=== PATIENT | male | born 1990 | race African-American/Black ===

== ENCOUNTER 2017-03-15 09:09 | Emergency (ER) | payer MEDICAID ==
[~2017-03-15] VITALS: Ht 182.9 cm; Wt 95.3 kg
[~2017-03-15 09:09] MED LIST: ALBUAER3 IN; AZITTAB11 PO; METH4PAK PO
[2017-03-15 09:36] VITALS: BP 144/94
[2017-03-15] MEDS ORDERED: cefTRIAXone SOD 1,000 MG VL IM ONE (10:30)
[2017-03-15] MEDS ORDERED: KETOROLAC TROMETH 60MG/2ML VIAL IM ONE (10:30)
== END 2017-03-15 11:18 | disposition home or self-care (01) ==
LOC: ER 09:09
DX: N45.1 Epididymitis (principal); N43.3 Hydrocele, unspecified; J45.909 Unspecified asthma, uncomplicated; N39.0 Urinary tract infection, site not specified; F17.210 Nicotine dependence, cigarettes, uncomplicated
CPT/HCPCS: 76870; 96372; 99284; J0696; J1885

== ENCOUNTER 2018-05-07 21:23 | Emergency (ER) | payer MEDICAID ==
[~2018-05-07] VITALS: Ht 182.9 cm; Wt 122.5 kg
[2018-05-07 23:20] VITALS: BP 158/78
[2018-05-08] MEDS ORDERED: cefTRIAXone SOD 1,000 MG VL IM ONE
[2018-05-08] MEDS ORDERED: DEXAMETHASONE SOD PHOS 10MG/1ML VIAL INJ IM ONE
== END 2018-05-08 05:52 | disposition home or self-care (01) ==
LOC: ER 21:23
DX: R09.81 Nasal congestion (principal); J06.9 Acute upper respiratory infection, unspecified; J45.909 Unspecified asthma, uncomplicated; F17.210 Nicotine dependence, cigarettes, uncomplicated; Z79.2 Long term (current) use of antibiotics
CPT/HCPCS: 96372; 99283; J0696; J1100

== ENCOUNTER 2019-06-21 14:33 | Emergency (ER) | payer MEDICAID ==
[~2019-06-21] VITALS: Ht 182.9 cm; Wt 86.2 kg
[2019-06-21 17:19] VITALS: BP 125/73
[2019-06-21] MEDS ORDERED: IBUPROFEN 800 MG TAB PO ONE (17:45)
== END 2019-06-21 18:12 | disposition home or self-care (01) ==
LOC: ER 14:33
DX: J06.9 Acute upper respiratory infection, unspecified (principal); R51 Headache; F17.210 Nicotine dependence, cigarettes, uncomplicated; J45.909 Unspecified asthma, uncomplicated; Z79.2 Long term (current) use of antibiotics

== ENCOUNTER 2020-11-26 02:00 | Emergency (ER) | payer MEDICAID ==
[~2020-11-26] VITALS: Ht 182.9 cm; Wt 90.7 kg
[2020-11-26] MEDS ORDERED: IBUPROFEN 600 MG TAB PO ONE (08:15)
[2020-11-26] MEDS ORDERED: TETANUS-DIPTH-ACEL PERTUSSIS 0.5ML SYR Tdap IM ONE (09:00)
[2020-11-26] MEDS ORDERED: LIDOCAINE 1% HCL (LOCAL ANESTH.) INJ 20ML MDV ID ONE (10:00)
[2020-11-26] MEDS ORDERED: ceFAZolin 1GM/50ML 100 ML IV ONE (14:00)
[2020-11-26] MEDS ORDERED: ceFAZolin IM 1GM/2.5ML STERILE WATER IM ONE (14:15)
[2020-11-26] MEDS ORDERED: ceFAZolin 1GM VL ONE (14:17)
[2020-11-26 14:27] VITALS: BP 100/41
== END 2020-11-26 14:29 | disposition home or self-care (01) ==
LOC: ER 02:05
DX: S50.352A Superficial foreign body of left elbow, initial encounter (principal); F17.210 Nicotine dependence, cigarettes, uncomplicated; Z79.899 Other long term (current) drug therapy; J45.909 Unspecified asthma, uncomplicated; V49.49XA Driver injured in collision with other motor vehicles in traffic accident, initial encounter; Y93.89 Activity, other specified; Y92.89 Other specified places as the place of occurrence of the external cause; Y99.8 Other external cause status
CPT/HCPCS: 70450; 71250; 72125; 73030; 73070; 73080; 73120; 74176; 90471; 90715; 96372; 99285; J0690; J2001; 10120

== ENCOUNTER 2022-11-21 13:33 | Emergency (ER) | payer MEDICAID ==
[~2022-11-21] VITALS: Ht 182.9 cm; Wt 116.8 kg
[2022-11-21 14:48] VITALS: BP 128/82
[2022-11-21] MEDS ORDERED: cefTRIAXone SOD 1,000 MG VL IM ONE (15:30)
[2022-11-21] MEDS ORDERED: AMOX400S53 PO (15:35)
[2022-11-21] MEDS ORDERED: LIDO2SOL26 MT (15:35)
== END 2022-11-21 15:46 | disposition home or self-care (01) ==
LOC: ER 13:33
DX: J03.90 Acute tonsillitis, unspecified (principal); J45.909 Unspecified asthma, uncomplicated; F17.210 Nicotine dependence, cigarettes, uncomplicated; Z88.1 Allergy status to other antibiotic agents
CPT/HCPCS: 96372; 99283; J0696

== ENCOUNTER 2024-05-31 14:40 | Emergency (ER) | payer MEDICAID ==
[~2024-05-31] VITALS: Ht 182.9 cm; Wt 116.6 kg
[~2024-05-31 14:40] MED LIST changes: +AMOX400S53 PO; +LIDO2SOL26 MT
[2024-05-31 15:48] LABS: Rapid Influenza A Negative (Negative); Rapid Influenza B Negative (Negative)
[2024-05-31 15:49] LABS: COVID19 ANTIGEN SOFIA FIA NEGATIVE (NEGATIVE)
[2024-05-31] MEDS ORDERED: AZIT-43 PO (18:30)
[2024-05-31] MEDS ORDERED: PRED20TA2 PO (18:30)
[2024-05-31] MEDS ORDERED: ALBUAER3 IN (18:30)
[2024-05-31] MEDS ORDERED: ACET500T58 PO (18:30)
--- NOTE | 2024-05-31 18:31 | ED.PDOC ---
SOB-HPI HPI Comments 34-YEAR-OLD MALE PRESENTS TO ER WITH COMPLAINTS OF COUGH X2 DAYS. PATIENT REPORTS HE HAS BEEN EXPERIENCING DRY COUGH, SORE THROAT AND ON/OFF BODY ACHES X2 DAYS WITH ASSOCIATED FEVER AND FRONTAL HEADACHE X1 DAY. DENIES USE OF MEDICATIONS FOR CURRENT SYMPTOMS. HE RATES HIS CURRENT PAIN A 10/10. PATIENT PRESENTS TO ER AFEBRILE, AMBULATORY ON ARRIVAL, WITH STEADY GAIT, IN NO DISTRESS AND STATES HE RECENTLY RAN OUT OF HIS ALBUTEROL INHALER THAT HE USES NEEDED FOR ASTHMA AND IS REQUESTING A REFILL OF HIS ALBUTEROL INHALER IN ER TODAY. DENIES SHORTNESS OF BREATH, CHEST PAIN, HEMOPTYSIS, EARACHE, DIZZINESS, NAUSEA/VOMITING, KNOWN EXPOSURE TO SICK CONTACTS OR ANY FURTHER SYMPTOMS/COMPLAINTS Chief Complaint: Flu like Time Seen by MD: 18:10 Primary Care Provider: UNKNOWN Reviewed notes: Nurses Notes, Medications, Allergies Information Source: Patient Mode of Arrival: Ambulatory Past Medical History PAST MEDICAL HISTORY: Asthma Surgical History: Denies all surgeries Family History Family History: Unknown Social History Smoker: Cigarettes, Less Than 1 Pack/Day Alcohol: Denies ETOH Use Drugs: Denies Drug Use Lives In: Home Constitutional: reports: others ( STATED IN HPI) EENTM: reports: others ( STATED IN HPI) Respiratory: reports: others ( STATED IN HPI) Cardiovascular: denies: chest pain, dizzy spells, diaphoresis, Dyspnea on exertion, edema, irregular heart beat, left arm pain, lightheadedness, palpitations, PND, syncope, others Gastrointestinal: denies: abdomen distended, abdominal pain, blood streaked bowels, constipated, diarrhea, dysphagia, difficulty swallowing, hematemesis, melena, nausea, poor appetite, poor fluid intake, rectal bleeding, rectal pain, vomiting, others Genitourinary: denies: burning, dysuria, flank pain, frequency, hematuria, incontinence, penile discharge, penile sore, pain, testicle pain, testicle swe lling, urgency, others Neurological: reports: others ( STATED IN HPI) Musculoskeletal: denies: back pain, gout, joint pain, joint swelling, muscle pain, muscle stiffness, neck pain, others Integumetry: denies: bruises, change in color, change in hair/nails, dryness, laceration, lesions, lumps, rash, wounds, others Allergic/Immunocompromised: denies: Difficulty Healing, Frequent Infections, Hives, Itching, others Hematologic/Lymphatic: denies: anemia, blood clots, easy bleeding, easy bruising, swollen glands, others Endocrine: denies: excessive hunger, excessive sweating, excessive thirst, excessive urination, flushing, intolerance to cold, intolerance to heat, unexplained weight gain, unexplained weight loss, others Psychiatric: denies: anxiety, bipolar disorder, depression, hopeless, panic disorder, schizophrenia, sleepless, suicidal, others Physical Exam General Appearance: No Apparent Distress, Obese HEENT: Normal ENT Inspection, PERRL/EOMI, Pharynx Normal, TMs Normal Neck: Full Range of Motion, Non-Tender, Normal Respiratory: Chest Non-Tender, Lungs Clear, No Accessory Muscle Use, No Respiratory Distress, Normal Breath Sounds Cardiovascular: No Murmur, No Gallop, Regular Rate/Rhythm Breast Exam: Deferred Gastrointestinal: NOT DONE Genitalia: Deferred Pelvic: Deferred Rectal: Deferred Extremities: Normal capillary refill, Normal range of motion Neurologic: Alert, multi line claims adjuster II-XII nml as Tested, No Motor Deficits, Normal Affect, Normal Mood, No Sensory Deficits Cerebellar Function: Normal Reflexes: Normal Skin: Dry, Normal Color, Warm Peripheral Pulses: 2+ Radial (R), 2+ Radial (L), 2+ Brachial (R), 2+ Brachial (L) Lymphatic: No Adenopathy Was a procedure done? Was a procedure done?: No Sedation Sedation?: No Differential Dx Differential Diagnosis: Pneumonia, Respiratory Distress, Allergic Rhinitis, Other (COVID-19, INFLUENZA) X-Ray, Labs, Meds, VS Vital Signs Date Time Temp Pulse Resp B/P (MAP) Pulse Ox O2 Delivery O2 Flow Rate FiO2 05/31/24 15:06 97.2 94 16 146/84 (104) 94 Lab Test 05/31/24 14:57 Range/Units Influenza Type A Antigen Negative Negative Influenza Type B Antigen Negative Negative SARS-CoV-2 Antigen (Rapid) Negative NEGATIVE INFLUENZA A AND B REVIEWED-NEGATIVE WILLIAM REVIEWED-NEGATIVE PATIENT IN NO DISTRESS DURING ER VISIT/PRIOR TO DISCHARGE SMOKING CESSATION DISCUSSED AND ADVISED ADVISED TO DRINK PLENTY OF FLUIDS ADVISED TO FOLLOW UP WITH PCP IN 1-2 DAYS PATIENT VERBALIZED UNDERSTANDING AND AGREEABLE WITH CURRENT PLAN OF CARE ADVISED TO RETURN TO ER IMMEDIATELY IF SYMPTOMS WORSEN Time of 1ST Reevaluation: 18:02 Reevaluation 1ST: N/A Patient Education/Counseling: Diagnosis, Treatment, Prognosis, Need For Follow Up Family Education/Counseling: No Family Present Departure 1 Departure Time of Disposition: 18:22 Impression: Primary Impression: Upper respiratory infection Qualified Codes: J06.9 - Acute upper respiratory infection, unspecified Disposition: 01 HOME / SELF CARE / HOMELESS Condition: Stable e-Prescriptions Albuterol Sulfate (VENTOLIN MDI) 90 Mcg Ih 2 PUFF IN Q6HPRN, #1 INH 0 Refills Prov: STAN MORRELL 05/31/24 Acetaminophen (Acetaminophen) 500 Mg Tab 500 MG PO Q4HPRN, #30 TAB 0 Refills Prov: STAN MORRELL 05/31/24 Prednisone (Prednisone) 20 Mg Tab 20 MG PO BID for 5 Days, #10 TAB 0 Refills Prov: STAN MORRELL 05/31/24 Azithromycin (Azithromycin) 250 Mg Tab 250 MG PO DAILY MDD 500 for 5 Days, #6 TAB 0 Refills 2 TABLETS ORALLY ON DAY ONE, THEN 1 TABLET ORALLY DAILY FOR 4 DAYS Prov: STAN MORRELL 05/31/24 Discharged With: Self Critical Care Note Critical Care Time?: No Stability Stability form required: No Heart Score Heart Score: Heart Score Response (Comments) Value History N/A 0 EKG N/A 0 Age N/A 0 Risk Factors N/A 0 Troponin N/A 0 Total 0 STAN MORRELL May 31, 2024 18:30
[2024-05-31 18:32] VITALS: BP 151/92; PULSE 87; RESP 18; TEMP 98; O2SAT 96
== END 2024-05-31 18:38 | disposition home or self-care (01) ==
LOC: ER 14:46
DX: J06.9 Acute upper respiratory infection, unspecified (principal); F17.210 Nicotine dependence, cigarettes, uncomplicated; J45.909 Unspecified asthma, uncomplicated; Z20.822 Contact with and (suspected) exposure to COVID-19
CPT/HCPCS: 36415; 87426; 87804

== ENCOUNTER 2025-05-23 12:46 | Emergency (ER) | payer MEDICAID ==
[~2025-05-23] VITALS: Ht 182.9 cm; Wt 118.2 kg
[~2025-05-23 12:46] MED LIST changes: +ACET500T58 PO; +AZIT-43 PO; +PRED20TA2 PO
[2025-05-23] MEDS: ALBUTEROL SULF 2.5 MG/0.5ML(0.5%) NEB SOLN NEB ONE (13:34)
[2025-05-23] MEDS: IPRATROPIUM BROM 0.5 MG/2.5ML INH SOL NEB ONE (13:34)
[2025-05-23] MEDS: IPRATROPIUM BROM 0.5 MG/2.5ML INH SOL ONE (13:34)
[2025-05-23] MEDS: ALBUTEROL SULF 2.5 MG/0.5ML(0.5%) NEB SOLN ONE (13:34)
--- NOTE | 2025-05-23 14:00 | DVH ---
CHEST RADIOGRAPH INDICATION: cough x 1 month TECHNIQUE: Single frontal view of the chest was obtained COMPARISON: CT CHEST ABD PELVIS WO CONTRAS on DOS: 11/26/20 FINDINGS: Lines and Tubes: None Lungs: No focal consolidation. Pleura: No effusion. No pneumothorax. Cardiomediastinal contours: Unremarkable Bones: No acute osseous abnormality. IMPRESSION: No acute cardiopulmonary disease.
[2025-05-23] MEDS ORDERED: METH4PAK PO (14:15)
--- NOTE | 2025-05-23 14:15 | ED.PDOC ---
SOB-HPI HPI Comments The patient with a history of asthma presents for evaluation of worsening respiratory symptoms. The patient reports nearly three weeks of waking up in the morning with significant congestion described as similar to asthma, which feels worse now. Additional symptoms include frequent coughing and intermittent shortness of breath that can become severe. The patient denies coughing up blood and notes that current inhaler and nebulizer treatments are not providing relief or improving breathing. The patient is currently using a Butyra inhaler and a nebulized medication at home, though reports these are ineffective. No relevant family or surgical history was discussed. Denies fevers chills night sweats unintentional weight loss Denies persistent chest pain, shortness of breath, leg swelling Denies history of asthma nor any breathing conditions Denies history of pneumonia Denies recent international travel Chief Complaint: Flu like Time Seen by MD: 12:56 Primary Care Provider: UNKNOWN Reviewed notes: Nurses Notes, Medications, Allergies Mode of Arrival: Ambulatory Severity: Moderate Timing: Weeks Duration: Since onset Context: At Rest, Spontaneous Onset PE Risk Factors: None History of: Asthma Prehospital treatment: None Associated Signs and Symptoms: Cough, Nasal Congestion If cough with SOB: Non-Productive Past Medical History PAST MEDICAL HISTORY: Asthma Surgical History: Denies all surgeries Family History Family History: Reviewed,noncontributory to illness, Unknown Social History Smoker: Cigarettes, Less Than 1 Pack/Day Alcohol: Denies ETOH Use Drugs: Denies Drug Use Lives In: Home Constitutional: denies: chills, diaphoresis, fatigue, fever, malaise, sweats, weakness, others EENTM: reports: nose congestion; denies: blurred vision, double vision, ear bleeding, ear discharge, ear drainage, ear pain, ear ringing, eye pain, eye redness, hearing loss, mouth pain, mouth swelling, nasal discharge, nose bleeding, nose pain, photophobia, tearing, throat pain, throat swelling, voice changes, others Respiratory: reports: cough, shortness of breath; denies: hemoptysis, orthopnea, SOB at rest, SOB with excertion, stridor, wheezing, others Cardiovascular: denies: chest pain, dizzy spells, diaphoresis, Dyspnea on ex ertion, edema, irregular heart beat, left arm pain, lightheadedness, palpitations, PND, syncope, others Gastrointestinal: denies: abdomen distended, abdominal pain, blood streaked bowels, constipated, diarrhea, dysphagia, difficulty swallowing, hematemesis, melena, nausea, poor appetite, poor fluid intake, rectal bleeding, rectal pain, vomiting, others Genitourinary: denies: burning, dysuria, flank pain, frequency, hematuria, incontinence, penile discharge, penile sore, pain, testicle pain, testicle swelling, urgency, others Neurological: denies: dizziness, fainting, headache, left sided numbness, left sided weakness, numbness, paresthesia, pre-existing deficit, right sided numbness, right sided weakness, seizure, speech problems, tingling, tremors, weakness, others Musculoskeletal: denies: back pain, gout, joint pain, joint swelling, muscle pain, muscle stiffness, neck pain, others Integumetry: denies: bruises, change in color, change in hair/nails, dryness, laceration, lesions, lumps, rash, wounds, others Allergic/Immunocompromised: denies: Difficulty Healing, Frequent Infections, Hives, Itching, others Hematologic/Lymphatic: denies: anemia, blood clots, easy bleeding, easy bruising, swollen glands, others Endocrine: denies: excessive hunger, excessive sweating, excessive thirst, excessive urination, flushing, intolerance to cold, intolerance to heat, unexplained weight gain, unexplained weight loss, others Psychiatric: denies: anxiety, bipolar disorder, depression, hopeless, panic disorder, schizophrenia, sleepless, suicidal, others All Other Systems: Reviewed and Negative Physical Exam Exam Comments No nasal flaring, no sternal retractions, noticeable expiratory wheezing throughout the anterior and posterior lobes. General Appearance: No Apparent Distress, Normal HEENT: Normal ENT Inspection, Pharynx Normal, TMs Normal Neck: Full Range of Motion, Non-Tender, Normal, Normal Inspection Respiratory: Chest Non-Tender, Lungs Clear, No Accessory Muscle Use, No Respiratory Distress, Normal Breath Sounds Cardiovascular: No Edema, No JVD, No Murmur, No Gallop, Normal Peripheral Pulses, Regular Rate/Rhythm Breast Exam: Deferred Gastrointestinal: No Organomegaly, Non Tender, No Pulsatile Mass, Normal Bowel Sounds, Soft Genitalia: Deferred Pelvic: Deferred Rectal: Deferred Extremities: No calf tenderness, Normal capillary refill, Normal inspection, Normal range of motion, Non-tender, No pedal edema Musculoskeletal : Apperance: Normal Neurologic: Alert, coordinator skill training program II-XII nml as Tested, No Motor Deficits, Normal Affect, Normal Mood, No Sensory Deficits Cerebellar Function: Normal Reflexes: Normal Skin: Dry, Normal Color, Warm Lymphatic: No Adenopathy Was a procedure done? Was a procedure done?: No Differential Dx Differential Diagnosis: Other X-Ray, Labs, Meds, VS Vital Signs Date Time Temp Pulse Resp B/P (MAP) Pulse Ox O2 Delivery O2 Flow Rate FiO2 05/23/25 14:21 68 16 98 Room Air 05/23/25 14:21 98.4 64 16 120/77 (91) 98 98.4 05/23/25 13:34 18 95 Room Air* 0 21 05/23/25 12:52 Room Air* 0 21 05/23/25 12:49 97.8 86 12 124/87 97 97.8 Current Medications Medications (Trade) Dose Ordered Sig/Norman Route Start Time Stop Time Status Last Admin Albuterol (Ventolin Medneb) 5 mg ONCE ONCE NEB 05/23/25 13:30 05/23/25 13:31 DC 05/23/25 13:34 Ipratropium [place] (Atrovent Medneb) 0.5 mg ONCE ONCE NEB 05/23/25 13:30 05/23/25 13:31 DC 05/23/25 13:34 Dexamethasone Sodium Phosphate (Decadron Injection) 16 mg ONCE ONCE IM 05/23/25 13:30 05/23/25 13:31 DC 05/23/25 13:42 X-Ray, Labs, Meds, VS Comment Patient arrives alert and oriented, ABC's intact, afebrile, vital signs stable, saturating well in room air The patient is experiencing worsening asthma symptoms despite home use of inhaler and nebulized medications, with persistent expiratory wheezing on exam. No hemoptysis. Increased risk due to ongoing daily smoking. Initiate DUON ABS and steroids. Reassess response to treatment. On reevaluation symptoms improved with treatment in the ED. Vital signs and exam reassuring. Lungs clear no wheezing. No labored breathing. No signs of respiratory distress. On reevaluation, patient had symptomatic improvement. Patient is stable for discharge at this time. External notes reviewed. Test results and diagnostic imaging interpreted. All diagnostic findings, discharge care, education and instructions provided Follow-up with PCP in 2 to 3 days Patient verbalized understanding and agreed to treatment plan Vital signs stable, afebrile, no acute distress noted Patient ambulatory with strong steady gait Advised to return precautions for any new or worsening symptoms, return to ER immediately for re-evaluation Patient is aware that the purpose of this visit was for an acute medical emergency requiring emergent stabilization. Chronic conditions, including malignancies have not been ruled out. Patient is instructed to follow up with PCP as directed and discharge instructions for continued care and workup. If unable to arrange follow-up, patient is to return to the emergency department for reassessment. Patient (parent or legal guardian if applicable) was given verbal and written discharge instructions and acknowledges understanding. Additional MDM Review of External, Non-ED records: External records reviewed. Discussion with independent historian (EMS, family) history obtained from the patient/parents (if applicable) at bedside Chronic conditions affecting care: None Social determinants of health affecting care: None Consideration of admission (observation or admission): I considered escalation of care to admission for this patient, however given the reassuring workup, the patient is safe for outpatient management. Discussion with the Radiology: No Tests considered but not performed: Prescription medication considered but not given: 12 lead EKG interpretation: Time of 1ST Reevaluation: 13:25 Reevaluation 1ST: Unchanged Patient Education/Counseling: Diagnosis, Treatment, Prognosis Family Education/Counseling: No Family Present SEPSIS Sepsis Screen Date sepsis recognized/suspect: May 23, 2025 Time Sepsis recognized/suspect: 1250 Recent Procedure: No On Antibiotic Therapy: No Respiratory Rate >20: No Heart Rate >90: No Temp<36 C (96.8 F) or >38.3 C: No SBP <90 or MAP <65 mmHG: No New Acute Mental Status Change: No Is the patient on CPAP, BIPAP,: No Physician Orders Chest Xray 1 View (05/23/25 13:19) Vital Signs Date Time Temp Pulse Resp B/P (MAP) Pulse Ox O2 Delivery O2 Flow Rate FiO2 05/23/25 14:21 68 16 98 Room Air 05/23/25 14:21 98.4 64 16 120/77 (91) 98 98.4 05/23/25 13:34 18 95 Room Air* 0 05/23/25 12:52 Room Air* 0 05/23/25 12:49 97.8 86 12 124/87 97 97.8 Departure 1 Departure Time of Disposition: 14:14 Impression: Primary Impression: Asthma exacerbation Qualified Codes: J45.21 - Mild intermittent asthma with (acute) exacerbation Disposition: HOME / SELF CARE / HOMELESS Condition: Stable Additional Instructions: Discharge Note: Continue on your medications. Do not drive when taking narcotics. Drink plenty of fluids. Follow up with your primary Dr. Take your prescriptions as ordered. If your condition becomes worse call and follow up with your primary Dr. for instructions or return to the ER if needed. Thank you for visiting [facility]. e-Prescriptions Methylprednisolone (Medrol Dosepak) 4 Mg Thaddeus 4 MG PO UD for 7 Days, #21 TAB 0 Refills UAD Prov: RICHARD LEE NP 05/23/25 Critical Care Note Critical Care Time?: No Stability Stability form required: No Heart Score Heart Score: Heart Score Response (Comments) Value History N/A 0 EKG N/A 0 Age N/A 0 Risk Factors N/A 0 Troponin N/A 0 Total 0 I personally scribed for RICHARD LEE NP ([email or web address]) on 05/23/25 at 15:19. Electronically submitted by Karel Lamas ([email or web address]). RICHARD LEE NP May 23, 2025 14:15
[2025-05-23 14:21] VITALS: BP 120/77; PULSE 68; RESP 16; TEMP 98.4; O2SAT 98
== END 2025-05-23 14:23 | disposition home or self-care (01) ==
LOC: ER 12:46
DX: J45.901 Unspecified asthma with (acute) exacerbation (principal); F17.210 Nicotine dependence, cigarettes, uncomplicated; Z79.899 Other long term (current) drug therapy
CPT/HCPCS: 71045; 94640; 96372; 99283; J1100